=== PATIENT | male | born 1990 ===

== ENCOUNTER 2016-09-27 07:31 | Emergency (ER) | payer SELFPAY ==
[2016-09-27] MEDS ORDERED: DELTASONE PO ONE (09:51)
[2016-09-27 10:45] VITALS: BP 120/78
--- NOTE | 2016-09-27 10:52 | Emergency Department Report ---
Entered by JUANA TABOR, acting as scribe for CHAO HAJI PA. - General Chief Complaint: Upper Respiratory Infection Stated Complaint: FLU LIKE SYMPTOMS Time Seen by Provider: 09/27/16 08:34 Source: patient Mode of arrival: Ambulatory Limitations: No Limitations - History of Present Illness Initial Comments: 26 year old male with no significant PMHx presents to the ED c/o flu-like symptoms for 2 days. Associated symptoms includes headache, nasal congestion, body aches, ear pain, throat pain with drainage, and frontal sinus pain, but he denies fever. Reports taking OTC cold medicine with no relief. NKDA. Onset/Timin -: days(s) Severity: moderate Severity scale (0 -10): 9 Quality: aching Consistency: constant Improves With: nothing Worsens With: nothing Associated Symptoms: myalgias (body aches), rhinorrhea, nasal congestion, sore throat, ear pain, other (frontal sinus pain, drainage in back of throat). denies: fever Treatments Prior to Arrival: "cold medicine" (OTC cold medicine) - Related Data Previous Rx's Medication Instructions Recorded Last Taken Type Cetirizine HCl [ZyrTEC] 10 mg PO QDAY #14 capsule 09/27/16 Unknown Rx Fluticasone [Flonase] 1 spray NS QDAY #1 bottle 09/27/16 Unknown Rx traMADol [Ultram] 50 mg PO Q6HR PRN #20 tablet 09/27/16 Unknown Rx Allergies Allergy/AdvReac Type Severity Reaction Status Date / Time No Known Allergies Allergy Unverified 09/27/16 07:35 ED Review of Systems Comment: All other systems reviewed and negative Constitutional: other (frontal sinus pain). denies: fever ENT: ear pain, throat pain, congestion, other (drainage in back of throat) Respiratory: cough. denies: shortness of breath, SOB with exertion, SOB at rest , stridor, wheezing Cardiovascular: denies: chest pain, palpitations, edema, syncope Gastrointestinal: denies: nausea, vomiting Musculoskeletal: myalgia (body aches). denies: back pain Skin: denies: rash Neurological: headache (frontal headache). denies: numbness, paresthesias, confusion, abnormal gait, vertigo ED Past Medical Hx - Past Medical History Previous Medical History?: No - Surgical History Past Surgical History?: No - Family History Family history: no significant - Social History Smoking Status: Current Every Day Smoker Substance Use Type: Alcohol, Marijuana - Medications Home Medications: Home Medications Medication Instructions Recorded Confirmed Last Taken Type Cetirizine HCl [ZyrTEC] 10 mg PO QDAY #14 capsule 09/27/16 Unknown Rx Fluticasone [Flonase] 1 spray NS QDAY #1 bottle 09/27/16 Unknown Rx traMADol [Ultram] 50 mg PO Q6HR PRN #20 tablet 09/27/16 Unknown Rx ED Physical Exam - General Limitations: No Limitations General appearance: alert, in no apparent distress - Head Head exam: Present: atraumatic, normocephalic - Eye Eye exam: Present: normal appearance, EOMI Pupils: Present: normal accommodation - ENT ENT exam: Present: normal orophraynx, mucous membranes moist, normal external ear exam, other (nose pale and boggy). Absent: TM's normal bilaterally ( TMs congested. Frontal sinus tenderness) - Expanded ENT Exam Expanded Ear exam: Present: normal external inspection TM/Canal exam: Effusion: Right TM, Left TM Mouth exam: Present: normal external inspection. Absent: drooling, trismus, muffled voice, tongue normal, tongue elevation, laceration Teeth exam: Present: normal inspection Throat exam: Positive: normal inspection. Negative: tonsillar erythema, tonsillomegaly, tonsillar exudate, R peritonsillar mass, L peritonsillar mass - Neck Neck exam: Present: normal inspection, full ROM. Absent: tenderness, lymphadenopathy - Respiratory Respiratory exam: Present: normal lung sounds bilaterally. Absent: respiratory distress, wheezes, rales, rhonchi, stridor, chest wall tenderness - Cardiovascular Cardiovascular Exam: Present: regular rate, normal rhythm, normal heart sounds - GI/Abdominal GI/Abdominal exam: Present: soft, normal bowel sounds. Absent: distended, tenderness, guarding, rebound, rigid - Extremities Exam Extremities exam: Present: normal inspection, full ROM, normal capillary refill. Absent: tenderness, pedal edema, joint swelling, calf tenderness - Back Exam Back exam: Present: normal inspection, full ROM - Neurological Exam Neurological exam: Present: alert, oriented X3, normal gait, reflexes normal. Absent: motor sensory deficit - Psychiatric Psychiatric exam: Present: normal affect, normal mood - Skin Skin exam: Present: warm, dry, intact, normal color. Absent: rash ED Course Vital Signs 09/27/16 07:35 Temperature 98.3 F Pulse Rate 71 Respiratory 20 Rate Blood Pressure 142/99 O2 Sat by Pulse 99 Oximetry - Reevaluation(s) Reevaluation #1: 09/27/16 10:45 Given Deltasone 60 mg in emergency room ED Medical Decision Making - Medical Decision Making ED course:Given Deltasone 60 mg in emergency room. Ptwith diagnosis of allergic rhinitis and headache. Discussed with patient that he was allergic rhinitis versus allergy based. Discussed treatment plan and follow-up at [facility] if he does not have a primary care physician. Patient discharged home with prescription for Flonase, Ultram and Zyrtec. ED Disposition Clinical Impression: Allergic rhinitis due to allergen Qualifiers: Allergic rhinitis seasonality: seasonal Allergic rhinitis trigger: pollen Qualified Code(s): J30.1 - Allergic rhinitis due to pollen Headache Qualifiers: Headache type: unspecified Headache chronicity pattern: acute headache Intractability: not intractable Qualified Code(s): R51 - Headache Disposition: DISCHARGED TO HOME OR SELFCARE Is pt being admited?: No Does the pt Need Aspirin: No Condition: Stable Instructions: Allergic Rhinitis (ED), Acute Headache (ED) Additional Instructions: Use saline nasal wash to Flush you sinuses out. Take medication as prescribed Take Ultram for headache. Prescriptions: Cetirizine HCl [ZyrTEC] 10 mg PO QDAY #14 capsule Fluticasone [Flonase] 1 spray NS QDAY #1 bottle traMADol [Ultram] 50 mg PO Q6HR PRN #20 tablet PRN Reason: Pain Referrals: PRIMARY CARE,MD [Primary Care Provider] - 3-5 Days [facility] [Outside] - 3-5 Days Forms: Work/School Release Form(ED), Accompanied Note This documentation as recorded by the LEANDER caballero JASMINE,accurately reflects the service I personally performed and the decisions made by me,CHAO HAJI PA.
== END 2016-09-27 11:00 | disposition home or self-care (01) ==
LOC: ED 07:31
DX: J30.1 Allergic rhinitis due to pollen (principal); R51 Headache
CPT/HCPCS: 99282; J7512

== ENCOUNTER 2018-06-22 11:20 | Emergency (ER) | payer SELFPAY ==
[2018-06-22] MEDS ORDERED: BOOSTRIX IM ONE (12:21)
--- NOTE | 2018-06-22 12:25 | Emergency Department Report ---
ED Laceration HPI - HPI Chief Complaint: Wound/Laceration Stated Complaint: FINGER INJURY Time Seen by Provider: 06/22/18 12:19 Location: Upper Extremity Severity: mild Tetanus Status: Not up to Date Laceration Symptoms: Yes Pain, No Foreign Body Sensation, No Numbness, No Weakness Other History: This is a 28-year-old male nontoxic, well nourished in appearance, no acute signs of distress presents to the ED with c/o of laceration to right index and middle finger that occurred 2 days ago. Patient stated that he cut his finger while at work using a saw. Patient denies any other trauma. Bleeding is controlled. Denies any decreased sensation or range of motion. Denies any fevers, chills, nausea, vomiting, chest pressure to bear. Denies any allergies significant past medical history. Patient stated that he came today just to get a work excuse note to return to work as the requested. ED Review of Systems ROS: Stated complaint: FINGER INJURY Other details as noted in HPI Constitutional: denies: chills, fever Eyes: denies: eye pain, eye discharge, vision change ENT: denies: ear pain, throat pain Respiratory: denies: cough, shortness of breath, wheezing Cardiovascular: denies: chest pain, palpitations Endocrine: no symptoms reported Gastrointestinal: denies: abdominal pain, nausea, diarrhea Genitourinary: denies: urgency, dysuria Musculoskeletal: denies: back pain, joint swelling, arthralgia Skin: denies: rash, lesions Neurological: denies: headache, weakness, paresthesias Psychiatric: denies: anxiety, depression Hematological/Lymphatic: denies: easy bleeding, easy bruising ED Past Medical Hx - Past Medical History Previous Medical History?: No - Surgical History Past Surgical History?: No - Social History Smoking Status: Current Every Day Smoker Substance Use Type: None - Medications Home Medications: Home Medications Medication Instructions Recorded Confirmed Last Taken Type Cetirizine HCl [ZyrTEC] 10 mg PO QDAY #14 capsule 09/27/16 Unknown Rx Fluticasone [Flonase] 1 spray NS QDAY #1 bottle 09/27/16 Unknown Rx traMADol [Ultram] 50 mg PO Q6HR PRN #20 tablet 09/27/16 Unknown Rx Ibuprofen [Motrin] 600 mg PO Q8H PRN #20 tablet 06/22/18 Unknown Rx Sulfamethoxazole/Trimethoprim 1 each PO BID #14 tablet 06/22/18 Unknown Rx [Bactrim DS TAB] Laceration Physical Exam - Exam General: Vital signs noted. No distress. Alert and acting appropriately. Laceration Location: Upper Extremity Laceration Exam: Yes Normal Distal CMS, No Foreign Body, No Exposed Tendon, Vessel, or Nerve, No Tendon Injury ED Course Vital Signs 06/22/18 11:31 Temperature 98.1 F Pulse Rate 73 Respiratory 18 Rate Blood Pressure 136/98 O2 Sat by Pulse 99 Oximetry - Reevaluation(s) Reevaluation #1: 06/22/18 12:23 Patient is speaking in full sentences with no signs of distress noted. ED Medical Decision Making - Medical Decision Making 28-year-old male that presents with abrasion. There is no open laceration but does have some abrasions at the scan. Due to occurred more than 24 hours area has been cleaned with soap and water. Patient received tetanus booster ER. Patient also discharged with Bactrim and Motrin for pain. Patient was referred to Follow-up with a primary care doctor in 3-5 days or if symptoms worsen and continue return to emergency room as soon as possible. At time of discharge, the patient does not seem toxic or ill in appearance. No acute signs of distress noted. Patient agrees to discharge treatment plan of care. No further questions noted by the patient. Critical care attestation.: If time is entered above; I have spent that time in minutes in the direct care of this critically ill patient, excluding procedure time. ED Disposition Clinical Impression: Abrasion Disposition: DC-01 TO HOME OR SELFCARE Is pt being admited?: No Does the pt Need Aspirin: No Condition: Stable Instructions: Acute Wound Care (ED), Abrasion (ED) Additional Instructions: Follow-up with a primary care doctor in 3-5 days or if symptoms worsen and continue return to emergency room as soon as possible. Prescriptions: Ibuprofen [Motrin] 600 mg PO Q8H PRN #20 tablet PRN Reason: Pain Sulfamethoxazole/Trimethoprim [Bactrim DS TAB] 1 each PO BID #14 tablet Referrals: PRIMARY CAREMD [Referring] - 3-5 Days LANI ALEMAN MD [Staff Physician] - 3-[address] [facility] [Outside] - 3-5 Days Forms: Work/School Release Form(ED)
[2018-06-22 12:52] VITALS: BP 136/78
== END 2018-06-22 12:50 | disposition home or self-care (01) ==
LOC: ED 11:20
DX: S60.410A Abrasion of right index finger, initial encounter (principal); S60.412A Abrasion of right middle finger, initial encounter; F17.200 Nicotine dependence, unspecified, uncomplicated; W26.8XXA Contact with other sharp object(s), not elsewhere classified, initial encounter; Y93.89 Activity, other specified; Y92.69 Other specified industrial and construction area as the place of occurrence of the external cause; Y99.8 Other external cause status
CPT/HCPCS: 90471; 90715